=== PATIENT | female | born 2000 | race Caucasian/White ===

== ENCOUNTER 2018-01-29 13:25 | Outpatient (CLI) | payer OTHER ==
--- NOTE | 2018-01-29 14:03 | XRAY Report ---
Procedure Date: 01/29/2018 Accession Number: [id number] / [id number] Procedure: XRS - Knee 3 View RT CPT Code: FULL RESULT: EXAM: Knee 3 View RT DATE: 01/29/2018 1:39 PM CLINICAL HISTORY: RIGHT KNEE PAIN, KNEE SWELLING COMPARISON: None. TECHNIQUE: 3 views. FINDINGS: Bones: Normal. No fractures or bone lesions. Joints: Normal. No effusion. No subluxations. Soft Tissues: Prepatellar soft tissue swelling and apparent prepatellar soft tissue defect suggestive of soft tissue gas should be correlated to soft tissue trauma. IMPRESSION: Prepatellar soft tissue swelling with suggestion of defect suggestive of gas, correlate to physical examination for trauma versus infection. If there has a history of fever and increasing redness in the area, possibly without trauma gas forming superficial soft tissue infection needs to be considered. RADIA
== END 2018-01-29 13:26 | disposition home or self-care (01) ==
LOC: DI.S 13:25
PROVIDERS: ATTEND Nurse Practitioner Family
DX: M70.51 Other bursitis of knee, right knee (principal); M25.561 Pain in right knee

== ENCOUNTER 2018-01-29 17:55 | Emergency (ER) | payer OTHER ==
--- NOTE | 2018-01-29 18:43 | ED Physician Documentation ---
PD HPI LOWER EXT INJURY - Stated complaint Stated Complaint: RT KNEE INJURY - Chief complaint Chief Complaint: Ext Problem - History obtained from History obtained from: Patient, Family (mom) - History of Present Illness PD HPI LOW EXT INJURY LOCATION: Right, Knee Timing - onset: Yesterday (Without specific injury since yesterday she developed increasing pain and swelling of the right knee. She was seen in the clinic today and started on doxycycline. It sounds like they tried to needle aspirate the bursa without success.) Review of Systems Constitutional: reports: Chills. denies: Fever GI: reports: Reviewed and negative PD PAST MEDICAL HISTORY - Past Surgical History Past Surgical History: No - Present Medications Home Medications: Ambulatory Orders Medication Instructions Recorded Confirmed No Known Home Medications [No 01/29/18 01/29/18 Known Home Medications] - Allergies Allergies/Adverse Reactions: Allergies Allergy/AdvReac Type Severity Reaction Status Date / Time Sulfa (Sulfonamide Allergy Unknown Verified 02/06/16 12:45 Antibiotics) - Social History Does the pt smoke?: No Smoking Status: Never smoker - Immunizations Immunizations are current?: Yes PD ED PE NORMAL - Vitals Vital signs reviewed: Yes - General General: Alert and oriented X 3, No acute distress - Extremities Extremities: Other (On the right knee she has tense prepatellar bursitis with mild overlying redness, she is able to bend and extend the knee. There is no effusion of the knee itself..) - Neuro Neuro: Alert and oriented X 3, Normal speech Results - Vitals Vitals: Vital Signs - 24 hr 01/29/18 01/29/18 18:14 19:04 Temperature 37.1 C Heart Rate 71 51 L Respiratory 18 18 Rate Blood Pressure 108/57 L 110/58 L O2 Saturation 100 100 Oxygen O2 Source Room air Procedures - Abscess I&D (location) R prepatellar burse Preparation: Betadine, Lidocaine 1% Incision: Incised with scalpel, Loculations broken, Packed (with 0.25 inch), Culture obtained Other: Pt tolerated well, Dressing applied. No: Antibiotic prescribed (on doxy) PD MEDICAL DECISION MAKING - Sepsis Event Vital Signs: Vital Signs - 24 hr 01/29/18 01/29/18 18:14 19:04 Temperature 37.1 C Heart Rate 71 51 L Respiratory 18 18 Rate Blood Pressure 108/57 L 110/58 L O2 Saturation 100 100 Oxygen O2 Source Room air Departure - Departure Disposition: 01 Home, Self Care Clinical Impression: Prepatellar bursitis of right knee Condition: Good Record reviewed to determine appropriate education?: Yes Instructions: ED Bursitis Comments: Follow-up with your doctor on Saturday for wound check, continue the doxycycline you are on. We are performing a wound culture, the results should be done in 48-72 hours. If antibiotic change is necessary we will call you. Return if worse in the meantime, especially if you develop increased pain, fevers, cannot keep down the medication. Otherwise follow-up with your physician in approximately 2-3 days. Discharge Date/Time: 01/29/18 19:24
[2018-01-29 19:04] VITALS: BP 110/58
== END 2018-01-29 19:24 | disposition home or self-care (01) ==
LOC: ED 17:55
DX: M70.41 Prepatellar bursitis, right knee (principal); M25.561 Pain in right knee
CPT/HCPCS: 27301; 87070; 87181; 87205; 99283

== ENCOUNTER 2019-10-22 19:25 | Emergency (ER) | payer MEDICAID, OTHER ==
[2019-10-22 19:32] VITALS: BP 115/69
[2019-10-22 19:42] LABS: BILIRUBIN,URINE NEGATIVE (NEGATIVE); GLUCOSE, URINE (UA) NEGATIVE (NEGATIVE); KETONES,URINE (UA) NEGATIVE (NEGATIVE); LEUKOCYTE ESTERASE, URINE LARGE (NEGATIVE); NITRITE,URINE POSITIVE (NEGATIVE); OCCULT BLOOD,URINE LARGE (NEGATIVE); PH,URINE 6.5 PH (5.0-7.5); PROTEIN,URINE 30 mg/dL (NEGATIVE); UROBILINOGEN,URINE 1 (NORMAL) E.U./dL (NORMAL)
--- NOTE | 2019-10-22 19:46 | ED Physician Documentation ---
History of Present Illness - Stated complaint Stated Complaint: FEMALE - Chief complaint Chief Complaint: General - History obtained from History obtained from: Patient (19-year-old female presents with a roughly 7-day history of urinary tract symptoms. She complains of dysuria, urgency, frequency, hesitancy, small volumes of urine output. Symptoms have worsened over the last 2 to 3 days. She denies any fevers, but states having chills for the last 2 days. Patient also states that over the last 2 days she has had pain in her right flank region. She is on aPriya contraceptive pill, denies any chance of being . Patient also states that her mom had a UTI a while back and her mom gave her a pill to take today, her mom told her that it would turn her urine orange. Patient did provide a urine sample today which was chito ge tint. No other complaints or concerns today.) - History of Present Illness Timing: How many days ago (5-7) Radiates to: Right flank Improved by: Nothing Associated symptoms: Chills Review of Systems Constitutional: reports: Fever, Chills. denies: Myalgias, Fatigue Eyes: reports: Reviewed and negative Ears: reports: Reviewed and negative Nose: reports: Reviewed and negative Throat: reports: Reviewed and negative GI: reports: Reviewed and negative : reports: Dysuria, Frequency, Hesitancy, LMP (October 14, 2019). 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 : None HEENT: None Psych: None Musculoskeletal: None Derm: None - Past Surgical History Past Surgical History: No - Present Medications Home Medications: Ambulatory Orders Medication Instructions Recorded Confirmed Ciprofloxacin HCl [Cipro] 500 mg PO BID #14 tablet 10/22/19 - Allergies Allergies/Adverse Reactions: Allergies Allergy/AdvReac Type Severity Reaction Status Date / Time Sulfa (Sulfonamide Allergy Unknown Verified 10/22/19 19:29 Antibiotics) - Social History Does the pt smoke?: No Smoking Status: Never smoker Does the pt drink ETOH?: Yes Does the pt have substance abuse?: No - Immunizations Immunizations are current?: Yes - POLST Patient has POLST: No PD ED PE NORMAL - General General: Alert and oriented X 3, No acute distress, Well developed/nourished - HEENT HEENT: Atraumatic, EOMI, Moist mucous membranes - Neck Neck: No adenopathy - Cardiac Cardiac: RRR, No murmur - Respiratory Respiratory: No respiratory distress, Clear bilaterally - Abdomen Abdomen: Normal bowel sounds, Soft, Non tender, Non distended - Female Female : Deferred - Back Back: No: No CVA TTP (miild right CVA TTP. ) Results - Vitals Vitals: Vital Signs - 24 hr 10/22/19 19:29 Temperature 37.3 C Heart Rate 75 Respiratory 18 Rate Blood Pressure 115/69 O2 Saturation 100 Oxygen O2 Source Room air PD MEDICAL DECISION MAKING - ED course Complexity details: reviewed results, re-evaluated patient, d/w patient Departure - Departure Disposition: 01 Home, Self Care Clinical Impression: UTI (urinary tract infection) Qualifiers: Urinary tract infection type: acute pyelonephritis Qualified Code(s): N10 - Acute pyelonephritis Condition: Good Instructions: ED UTI Cystitis Female, ED Kidney Infec Female Prescriptions: Ciprofloxacin HCl [Cipro] 500 mg PO BID #14 tablet Comments: You do have symptoms suggestive of a urinary tract infection and kidney infection. Your urine sample today showed the same. I have given you an antibiotic called Ciprofloxacin to take twice a day for seven days. Make sure you drink plenty of clear fluids to help dilute your urine so it does not burn so much. You can get some AZO from the store and take as directed to help reduce the burning sensation when you urinate. If your symptoms fail to improve after being on the antibiotic for 2-3 days, or they worsen then return to your primary medical provider for further evaluation. You can take Ibuprofen for pain and fever control.
[2019-10-22 19:53] LABS: BACTERIA,URINE Rare /HPF (None Seen); CLARITY,URINE CLEAR (CLEAR); RBC,URINE 0-5 /HPF (0-5); SQUAMOUS EPITHELIAL CELL,UR NONE SEEN (<= Few)
[2019-10-22] MEDS: CIPROFLOXACIN 250 MG TABLET PO STA (20:02)
== END 2019-10-22 20:06 | disposition home or self-care (01) ==
LOC: ED 19:25
DX: N10 Acute pyelonephritis (principal)
CPT/HCPCS: 81001; 81003; 87086; 87181; 99283; 99284

== ENCOUNTER 2020-02-25 14:13 | Outpatient (CLI) | payer MEDICAID | END 2020-02-25 14:14 | disposition home or self-care (01) | LOC: COV 14:13 | PROVIDERS: ATTEND Family Medicine | DX: R05 Cough (principal); R53.83 Other fatigue; J02.9 Acute pharyngitis, unspecified; R09.81 Nasal congestion; R11.0 Nausea; Z20.828 Contact with and (suspected) exposure to other viral communicable diseases ==

== ENCOUNTER 2020-05-07 00:13 | Outpatient (CLI) | payer MEDICAID | END 2020-05-07 00:14 | disposition EMS.NT | LOC: EMS 00:13 | PROVIDERS: ATTEND Surgery | DX: R55 Syncope and collapse (principal) ==

== ENCOUNTER 2020-12-01 19:23 | Emergency (ER) | payer MEDICAID ==
[2020-12-01 19:33] VITALS: BP 110/64
--- NOTE | 2020-12-01 20:00 | ED Physician Documentation ---
History of Present Illness - Stated complaint Stated Complaint: RT FOOT PX - Chief complaint Chief Complaint: Ext Problem - Additonal information Additional information: 20-year-old female presents emergency department for evaluation of intermittent right foot pain for about 3 months. She reports that she often has pain that shoots from the heel of her foot to the sole. She also has pain in the right lateral ankle that sometimes she feels mostly when walking. There has been no inciting trauma or event that she can remember. There is no foot swelling. Patient is concerned that she may have plantar fasciitis Review of Systems Constitutional: reports: Reviewed and negative Eyes: reports: Reviewed and negative Nose: reports: Reviewed and negative Throat: reports: Reviewed and negative Cardiac: reports: Reviewed and negative Respiratory: reports: Reviewed and negative GI: reports: Reviewed and negative : reports: Reviewed and negative Skin: reports: Reviewed and negative Musculoskeletal: reports: Extremity pain (Right foot) Neurologic: reports: Reviewed and negative PD PAST MEDICAL HISTORY - Past Medical History Past Medical History: Yes Cardiovascular: None Respiratory: None Neuro: None Endocrine/Autoimmune: None 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 : None HEENT: None Psych: Depression Musculoskeletal: None Derm: None - Past Surgical History Past Surgical History: No - Present Medications Home Medications: Ambulatory Orders Medication Instructions Recorded Confirmed Iron/C/Folate 6/B12/Zn/Stomach 1 tab PO DAILY 12/01/20 12/01/20 [Chromagen Softgel] Sertraline [Zoloft] 25 mg PO DAILY 12/01/20 12/01/20 - Allergies Allergies/Adverse Reactions: Allergies Allergy/AdvReac Type Severity Reaction Status Date / Time Sulfa (Sulfonamide Allergy Unknown Verified 12/01/20 19:33 Antibiotics) - Social History Does the pt smoke?: Yes Smoking Status: Current every day smoker Does the pt drink ETOH?: Yes Does the pt have substance abuse?: Yes Substance Use and Type: Marijuana - Immunizations Immunizations are current?: Yes - POLST Patient has POLST: No PD ED PE EXPANDED - General General: Alert, No acute distress - Extremities Extremities: Right foot (2+ DP pulse. Normal flexion extension, inversion/eversion. Pain with palpation along the sole and heel of the foot. Mild tenderness elicited of the right lateral ankle with inversion. No obvious swelling deformity sores or lesions.) Results - Vitals Vitals: Vital Signs - 24 hr 12/01/20 12/01/20 19:31 19:36 Temperature 37.1 C Heart Rate 82 Respiratory 15 15 Rate Blood Pressure 110/64 O2 Saturation 100 Oxygen O2 Source Room air - Rads (name of study) right foot Radiology: EMP read indepedently (No acute bony abnormality.) PD MEDICAL DECISION MAKING - ED course Complexity details: reviewed results, re-evaluated patient, d/w patient ED course: 20-year-old female presents emergency department for evaluation of intermittent but now seemingly chronic right foot pain for 3 months. Pain tends to be in the sole and heel of the foot and worse when walking. Also has right lateral ankle pain in the absence of any inciting injury. X-ray does not really reveal any acute abnormality but based on the history and symptoms I am most suspicious for a plantar fasciitis as well as possible a mild right ankle sprain. Patient was given an Nacho wrap on the foot with marked improvement in her symptoms and a bility to bear weight and walk. I recommended that she wear the Nacho wrap when out of bed at all times for the next week and take ibuprofen [id number] for discomfort. If symptoms not markedly better she may benefit from podiatry referral. Emergent return precautions were discussed. Departure - Departure Disposition: 01 Home, Self Care Clinical Impression: Right foot pain, Plantar fasciitis of right foot Condition: Stable Record reviewed to determine appropriate education?: Yes Instructions: Plantar Fasciitis Tx, ED Plantar Fasciitis Comments: Anam you were seen in the ER today for right foot pain that has been intermittent for about 3 months. As we discussed I suspect that most of the pain is plantar fasciitis or inflammation of the large tendon that runs on the sole of your foot. It is also possible you have a mild right ankle sprain. The x-ray of your foot is unremarkable. Please wear the Nacho wrap when out of bed for the next 1 to 2 weeks. Please take ibuprofen 600 mg with food 2-3 times a day for the next few days to see if that improves your symptoms. Always wear well supporting shoes with good arch support If your symptoms are not much better over the next 1 to 2 weeks you may benefit from referral to a business and marketing teacher or foot doctor.
--- NOTE | 2020-12-01 20:03 | XRAY Report ---
PROCEDURE: Foot 2 View RT INDICATIONS: pain TECHNIQUE: 2 views of the foot were acquired. COMPARISON: None FINDINGS: Bones: No fractures or dislocations. No suspicious bony lesions. Soft tissues: No tibiotalar joint effusion. Achilles tendon appears normal. IMPRESSION: No acute fracture. No osseous lesion. If symptoms and/or clinical suspicion for pathology continue, f urther assessment with repeat plain films, or advanced imaging (e.g., CT, MRI, or bone scan) is recom mended for further assessment. Reviewed by: Fredrick Parks MD on 12/01/2020 8:02 PM PDT Approved by: Fredrick Parks MD on 12/01/2020 8:02 PM PDT Station ID: [id number]
== END 2020-12-01 20:14 | disposition home or self-care (01) ==
LOC: ED 19:23
DX: M72.2 Plantar fascial fibromatosis (principal); F17.200 Nicotine dependence, unspecified, uncomplicated
CPT/HCPCS: 99282; 99283

== ENCOUNTER 2021-03-02 13:49 | Emergency (ER) | payer MEDICAID ==
[2021-03-02 13:56] VITALS: BP 109/68
--- NOTE | 2021-03-02 14:15 | ED Physician Documentation ---
History of Present Illness - Stated complaint Stated Complaint: HEAD PX - Chief complaint Chief Complaint: Trauma Hd/Nk - Additonal information Additional information: 20-year-old female presents emergency department for evaluation of a headache, fatigue and dizziness after striking her head twice over the last 24 hours. Once was on her mantle when she was standing up and the other was when she was bending forward and striking her head on a table. There was no loss of consciousness. Since then she has endorsed a mild headache and has had difficulty concentrating especially when working at her computer. No history of anticoagulation or similar in the past. 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 : None HEENT: None Psych: Depression Musculoskeletal: None Derm: None - Past Surgical History Past Surgical History: No - Present Medications Home Medications: Ambulatory Orders Medication Instructions Recorded Confirmed Iron/C/Folate 6/B12/Zn/Stomach 1 tab PO DAILY 12/01/20 12/01/20 [Chromagen Softgel] Sertraline [Zoloft] 25 mg PO DAILY 12/01/20 12/01/20 - Allergies Allergies/Adverse Reactions: Allergies Allergy/AdvReac Type Severity Reaction Status Date / Time Sulfa (Sulfonamide Allergy Unknown Verified 03/02/21 13:53 Antibiotics) - Social History Does the pt smoke?: Yes Smoking Status: Current every day smoker Does the pt drink ETOH?: Yes Does the pt have substance abuse?: Yes - Immunizations Immunizations are current?: Yes - POLST Patient has POLST: No PD ED PE NORMAL - General General: Alert and oriented X 3, No acute distress - HEENT HEENT: PERRL - Neck Neck: Supple, no meningeal sign - Cardiac Cardiac: RRR, No murmur - Respiratory Respiratory: Clear bilaterally - Abdomen Abdomen: Normal bowel sounds, Soft, Non tender, Non distended - Back Back: No CVA TTP, No spinal TTP - Derm Derm: Warm and dry - Extremities Extremities: No deformity - Neuro Neuro: Alert and oriented X 3 Eye Opening: Spontaneous Motor: Obeys Commands - Psych Psych: Normal mood, Normal affect Results - Vitals Vitals: Vital Signs - 24 hr 03/02/21 13:53 Temperature 36.5 C Heart Rate 55 L Respiratory 16 Rate Blood Pressure 109/68 O2 Saturation 96 Oxygen O2 Source Room air PD MEDICAL DECISION MAKING - ED course Complexity details: d/w patient ED course: In the setting of [id number] female presents emergency department for evaluation of mild headache striking her head twice on a mat on a table. There was no loss of consciousness. I suspect that she has a mild concussion but without focal neuro deficits or other worrisome red flags will defer CT imaging at this time. Discussed routine concussive care. Emergent return precautions discussed. Departure - Departure Disposition: 01 Home, Self Care Clinical Impression: Concussion Qualifiers: Encounter type: initial encounter Loss of consciousness presence/duration: without LOC Qualified Code(s): S06.0X0A - Concussion without loss of consciousness, initial encounter Headache Qualifiers: Headache type: unspecified Headache chronicity pattern: acute headache Intractability: not intractable Qualified Code(s): R51.9 - Headache, unspecified Condition: Stable Record reviewed to determine appropriate education?: Yes Instructions: Brain Injury Mild Traum Concussion Comments: You are seen in the emergency department today for headache, fatigue, and nausea after striking her head twice in the last 2 days. You do most likely have a minor concussion. The most important thing is to allow your brain rest. You should aim for at least 8 hours of sleep at night. Avoid stimulants such as caffeine nicotine or alcohol or other drugs. I also recommend that you avoid TV, cell phone computer or tyler and limited to less than 1 hour each day. Most concussions will heal well over 1 to 2 weeks. If any point you develop suddenly severe headache, have uncontrolled vomiting, or exceeding extremely weak or lethargic or have facial droop or arm or leg weakness and please return to the ER for a second look.
== END 2021-03-02 14:35 | disposition home or self-care (01) ==
LOC: ED 13:49
DX: S06.0X0A Concussion without loss of consciousness, initial encounter (principal); W22.8XXA Striking against or struck by other objects, initial encounter; F17.200 Nicotine dependence, unspecified, uncomplicated
CPT/HCPCS: 99281; 99282

== ENCOUNTER 2021-05-12 07:17 | Outpatient (CLI) | payer MEDICAID ==
--- NOTE | 2021-05-12 09:48 | Ultrasound Report ---
PROCEDURE: Abdomen Complete INDICATIONS: ABD PAIN TECHNIQUE: Real-time scanning was performed of the abdominal and retroperitoneal organs, with image documentatio n. COMPARISON: None available. FINDINGS: Liver: Normal size. Increased in echogenicity. No focal lesion is identified. Gallbladder: Gallbladder is nondistended. No stones or sludge. No gallbladder wall thickening. No per icholecystic fluid. Negative sonographic Knight sign. Biliary ducts: Intrahepatic bile ducts are non-dilated. Extrahepatic bile duct caliber measures 2 m m. Normal is 6-7 mm or less in diameter, or 10 mm or less post-cholecystectomy. Pancreas: Visualized portions of the pancreas are sonographically normal. Spleen: Spleen is normal in size and homogeneous in echotexture. Measures 10 cm. Kidneys: Kidneys are normal in size and echotexture. Right kidney measures 12.1 cm long; left kidne y measures 10.8 cm long. No hydronephrosis or nephrolithiasis. No solid masses identified. Aorta: Visualized aorta is normal in caliber at less than 3 cm. Iliacs: Proximal common iliac arteries are normal in caliber at less than 2.5 cm. IVC: Intrahepatic inferior vena cava is patent. Miscellaneous: No free abdominal fluid. IMPRESSION: 1. Increased echogenicity of the hepatic parenchyma. This is most commonly seen in hepatic steatosis. Other forms of hepatocellular disease could have a similar appearance. No focal lesion is identified . If clinically indicated MRI or CT of the liver with IV contrast could be performed to follow-up the r eported previously seen lesion. 2. No acute cholecystitis. No gallstones. 3. No hydronephrosis. Reviewed by: Paul Olivier MD on 05/12/2021 9:47 AM [facility] Approved by: Paul Olivier MD on 05/12/2021 9:47 AM PST Station ID: [id number]
== END 2021-05-12 07:18 | disposition home or self-care (01) ==
LOC: DI 07:17
PROVIDERS: ATTEND Acupuncturist
DX: R10.84 Generalized abdominal pain (principal); K76.89 Other specified diseases of liver

== ENCOUNTER 2023-11-01 19:06 | Outpatient (CLI) | payer SELFPAY | END 2023-11-01 23:59 | disposition EMS.NT | LOC: EMS 19:06 | DX: F41.9 Anxiety disorder, unspecified (principal) ==